=== PATIENT | male | born 1990 | race American Indian/Alaskan Native ===

== ENCOUNTER 2017-01-05 13:07 | Emergency (ER) | payer OTHER ==
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
[2017-01-05] MEDS ORDERED: TYLENOL PO ONE (16:05)
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
[2017-01-05 17:50] VITALS: BP 122/76
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
--- NOTE | 2017-01-05 18:19 | XRay Report ---
FINAL REPORT EXAM: XR TIBIA FIBULA 2V RT HISTORY: pain RLE TECHNIQUE: Right tibia fibula AP and lateral views PRIORS: None. FINDINGS: No fracture is identified. The joint spaces are within normal limits. No focal bony lesion identified. No radiopaque foreign body seen. IMPRESSION: Negative no acute abnormality.
== END 2017-01-05 18:44 | disposition home or self-care (01) ==
LOC: ED 13:07
DX: S06.0X0A Concussion without loss of consciousness, initial encounter (principal); M79.661 Pain in right lower leg; F17.200 Nicotine dependence, unspecified, uncomplicated; V89.2XXA Person injured in unspecified motor-vehicle accident, traffic, initial encounter; Y93.89 Activity, other specified; Y92.89 Other specified places as the place of occurrence of the external cause; Y99.8 Other external cause status
CPT/HCPCS: 70450; 72125

== ENCOUNTER 2017-11-01 19:49 | Emergency (ER) | payer SELFPAY ==
[2017-11-01 20:15] VITALS: BP 120/81
[2017-11-01] MEDS ORDERED: MOTRIN PO ONE (21:45)
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
== END 2017-11-01 22:00 | disposition home or self-care (01) ==
LOC: ED 19:49
DX: M54.2 Cervicalgia (principal); M54.5 Low back pain; F17.200 Nicotine dependence, unspecified, uncomplicated
CPT/HCPCS: 99282